=== PATIENT | male | born 1975 | race Caucasian/White ===

== ENCOUNTER 2024-09-10 06:30 | Emergency (ER) | payer OTHER, SELFPAY ==
[2024-09-10 06:37] VITALS: BP 131/71; PULSE 101; RESP 16; TEMP 36.5; O2SAT 98; BMI 25.7
--- NOTE | 2024-09-10 06:41 | DI.RAD.S_ITS ---
PROCEDURE: XR HAND LT MIN 3V INDICATIONS: pressure spray injury L index finger TECHNIQUE: 3 views of the hand(s) acquired. COMPARISON: None. FINDINGS: Bones: No fractures or dislocations. Carpal bones are normally aligned. No suspicious bony lesions. Soft tissues: No suspicious soft tissue calcifications. Punctate debris projects over the proximal 2nd digit. IMPRESSION: Punctate, radiopaque debris projects over the proximal 2nd digit, concerning for foreign body. No underlying fracture. Dictated by: Km Soto M.D. on 09/10/2024 at 8:16 Approved by: Km Soto M.D. on 09/10/2024 at 8:17
--- NOTE | 2024-09-10 06:47 | PC.NURSE ---
Imaging at bedside
--- NOTE | 2024-09-10 07:27 | ED_ITS ---
HPI - Skin/Abscess/Foreign Bdy General Chief complaint: Skin/Abscess/Foreign Body Stated complaint: skin abrasion left finger Time Seen by Provider: 09/10/24 06:58 Source: patient Mode of arrival: Ambulatory Limitations: no limitations History of Present Illness HPI narrative: Patient is a healthy 49-year-old male presenting today with work-related injury. He is right-hand dominant but injury to his left index finger after last injury. 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 He is having quite a bit of pain. No other injury unsure when his last tetanus Related Data Previous Rx's Medication Instructions Recorded cephalexin 500 mg capsule 500 mg PO TID #21 caps 09/10/24 Patient History Social History Smoking Status: Never smoker Smoking Status: Never smoker Exam Initial Vital Signs Initial Vital Signs: Vital Signs Temperature 97.7 F 09/10/24 06:37 Pulse Rate 101 H 09/10/24 06:37 Respiratory Rate 16 09/10/24 06:37 Blood Pressure 131/71 09/10/24 06:37 Pulse Oximetry 98 09/10/24 06:37 Oxygen Delivery Method Room Air 09/10/24 06:37 GENERAL: Well-appearing, well-nourished and in no acute distress. CARDIOVASCULAR: peripheral pulses in tact, cap refill <2 sec RESPIRATORY: No respiratory distress, speaks in full sentences without difficulty EXTREMITIES: Normal range of motion, no clubbing or edema. Neurovascularly intact Left index finger full flexion and extension abrasion noted on lateral side NEUROLOGICAL: Cranial nerves II through XII grossly intact. Normal gait and speech. SKIN: Left index finger abrasion noted significant debris no repairable laceration Procedures Nerve Block Nerve Block 1: Local Anesthetic: lidocaine 2% Amount of anesthesia used (mL): 5 Side: left Nerve Blocks: digital Procedure Successful: Yes Patient Tolerated Procedure: Well and No complications Complications: none Course Orders Ordered: ED Orders 09/10/24 06:41 XR hand LT min 3V Stat Discontinued Medications Diphtheria/Tetanus/Acell Pertussis (Tet,Diph,Pertuss(Acell),Vac/Pf 0.5 Ml Syringe) 0.5 ml IM .ONCE ONE Stop: 09/10/24 07:34 Last Admin: 09/10/24 07:42 Dose: 0.5 ml Documented By: MPO Lidocaine HCl (Lidocaine 2% Inj Sdv 5ml) 2 ml INJ NOW ONE Stop: 09/10/24 07:33 Last Admin: 09/10/24 07:41 Dose: 2 ml Documented By: EULALIO Vital Signs Vital signs: Vital Signs - 8 hr 09/10/24 06:37 09/10/24 08:15 Temperature 97.7 F Pulse Rate 101 H 82 Respiratory Rate 16 12 Blood Pressure 131/71 127/71 Pulse Oximetry 98 100 Oxygen Delivery Method Room Air Room Air MDM - Skin/Abscess/Foreign Bdy Imaging Data Extremity x-ray #1: Radiologist's Impression: PROCEDURE: XR HAND LT MIN 3V INDICATIONS: pressure spray injury L index finger TECHNIQUE: 3 views of the hand(s) acquired. COMPARISON: None. FINDINGS: Bones: No fractures or dislocations. Carpal bones are normally aligned. No suspicious bony lesions. Soft tissues: No suspicious soft tissue calcifications. Punctate debris projects over the proximal 2nd digit. IMPRESSION: Punctate, radiopaque debris projects over the proximal 2nd digit, concerning for foreign body. No underlying fracture. Dictated by: Km Soto M.D. on 09/10/2024 [facility] Narrative Medical decision making narrative: Patient 49 year old male with left index finger high-pressure injury. There is foreign body seen on the x-ray. Area was anesthetized and scrubbed with brush. No need for laceration wound was covered with Xeroform and dressing. Dr. Barahona consulted in regards to follow-up this time recommends that he can be seen in clinic. Discharge Plan Departure Patient Disposition: Home Clinical Impression: High-pressure injection injury of finger of left hand Instructions: Debridement of a Wound, Infection, or Burn Activity Restrictions/Additional Instructions: *You have been diagnosed with high pressure wound injury *What to do: At this time keep wound clean and dry with soap and water may apply antibiotic ointment 1 to 2 times a day. Keep covered. Elevate and ice as needed. Please monitor very closely You also need to call orthopedics this morning to schedule follow-up appointment next week *Continue to take medications as directed Keflex 500 mg 3 times a day for 7 days Tylenol 1000 mg every 6 hours if needed for [id number] pain Motrin 600 mg every 6 hours if needed for [id number] pain *Follow up with your primary care provider in 2-3 days or call [phone] *Return to ER if you should have increasing pain redness streaking fever decreased range of motion or any new, worsening or concerning symptoms Prescriptions: New cephalexin 500 mg capsule 500 mg PO TID Qty: 21 0RF Stand Alone Forms: Patient Portal/API/Survey
[2024-09-10] MEDS: LIDOCAINE 2% INJ SDV 5ML 2 ML INJ (07:41)
[2024-09-10] MEDS: TET,DIPH,PERTUSS(ACELL),VAC/PF 0.5 ML SYRINGE IM (07:42)
[2024-09-10 08:15] VITALS: BP 127/71; PULSE 82; RESP 12; O2SAT 100
== END 2024-09-10 08:16 | disposition home or self-care (01) ==
PROVIDERS: Emergency Provider Emergency Medicine
DX: S69.92XA Unspecified injury of left wrist, hand and finger(s), initial encounter (principal); W22.8XXA Striking against or struck by other objects, initial encounter; Z23 Encounter for immunization
CPT/HCPCS: 64450; 73130; 90471; 99283; 99284; 90715